=== PATIENT | male | born 1965 | race African-American/Black ===

== ENCOUNTER 2024-12-29 23:37 | Inpatient (IN) | payer OTHER, SELFPAY ==
[2024-12-29 20:30] VITALS: BP 102/74
[2024-12-29 21:22] LABS: Hematocrit 41.8 % (39.0-52.0); Hemoglobin 13.9 g/dL (13.0-18.0); Mean Corp Hgb Conc. 33.3 g/dL (33.0-37.0); Mean Corpuscular Volume 86.5 fL (80.0-94.0); Nucleated Red Blood Cells % 0 % (-); Platelet Count 269 10^3/uL (130-400); Red Cell Dist. Width 14.2 % (11.5-14.5)
[2024-12-29 21:29] LABS: Urine Character Slightly Cloudy (Clear)
--- NOTE | 2024-12-29 21:49 | ED.GENMED ---
History of Present Illness
<Tea Payne [employer] - Last Filed: 12/31/24 17:53>
General
Chief Complaint: Male Genito-Urinary Symptoms
Source: patient
Exam Limitations: none
Time Seen by Provider: 12/29/24 20:44
Nursing documentation reviewed up to this point in time: agreed with
History of Present Illness
History of Present Illness:
59-year-old male with history of HTN, HLD presenting with pain in the prostate area that extends to the scrotum and painful urination. In addition to these symptoms, he reports experiencing fevers and chills for the last three days, with
temperatures reaching as high as 102.9�F. The fever has ranged between 102.1�F and 102.9�F. The patient has taken Advil for the fever, which helped alleviate associated headaches but no reports on its effect on the pain. Does not feel that his
bladder is always emptying when he urinates.. He denies any difficulty in moving his bowels, with normal bowel movements reported. Denies N/V. Denies abdominal pain
Past History
<Tea Payne, [employer] - Last Filed: 12/31/24 17:53>
Past History
ED Past Medical History: HTN, Hypercholesterolemia and Other (Urine retention)
ED Past Surgical History: Appendectomy
Social History
Tobacco: Non-smoker
Alcohol: Occasional
Personal:
Living: with family
Employment: Employed
Review of Systems
<Tea Payne, [employer] - Last Filed: 12/31/24 17:53>
Review of Systems
Allergies reviewed?: Yes
All Other Systems: ROS reviewed and negative except as documented in HPI and ROS
Constitutional: Reports fever and chills
Respiratory: Denies trouble breathing
Cardiac: Denies chest pain
ABD/GI: Denies abdominal pain, nausea, vomiting or diarrhea
: Reports dysuria and difficulty voiding; Denies flank pain
Musculoskeletal: Reports no symptoms
Skin: Reports no symptoms
Neurological: Reports no symptoms
Phy Exam
<Tea Payne, [employer] - Last Filed: 12/31/24 17:53>
Physical Exam
Physical Exam:
GENERAL: No acute distress. A&Ox3.
CONSTITUTIONAL: Afebrile.
EYES: clear, conjunctivae normal
ENMT: moist mucus membranes, Pharynx nl
RESPIRATORY: Regular respirations, nonlabored, lungs clear.
CARDIOVASCULAR: Regular rate and rhythm, no murmurs, no rubs.
GI: Soft, nontender, normal BS
MUSCULOSKELETAL: Moves with ease. Well perfused.
SKIN: Warm, dry, pink
PSYCH: Normal mood and affect. Well kept, interactive and appropriate
NEUROLOGIC: Awake, alert and oriented. No focal neurological deficits
Course
<Tea Payne, [employer] - Last Filed: 12/31/24 17:53>
Orders/Labs/Results
Orders:
Orders
12/29/24 21:05
Bladder Scan- Treatment ONCE
12/29/24 21:06
CT Abd/Pel (IV only)-DH only Urgent
Comment:
Reason For Exam: pain to urinate, high fever, groin pain
12/29/24 21:16
C-Reactive Protein Urgent
Comment: ADD ON
Complete Blood Count/With Diff Urgent
Comprehensive Metabolic Panel Urgent
Erythrocyte Sed Rate Urgent
Comment: ADD ON
Urinalysis Reflex To Culture Urgent
Date Specimen was Collected: 12/29/24
Time Specimen was Collected: 21:13
Urine Microscopic Reflex Cult Urgent
Chlamydia/GC by PCR Urgent
ELISEO Source: U
Specimen Description:
Date Specimen was Collected: 12/29/24
Time Specimen was Collected: 21:13
Urine Culture Urgent
ELISEO Source: U
Specimen Description:
Date Specimen was Collected: 12/29/24
Time Specimen was Collected: 21:13
12/29/24 21:54
0.9% Sodium Chloride 1000 ml [Nss] 1,000 ml IV BOLUS
12/29/24 22:03
Piperacillin/Tazo 3.375 Gram [Zosyn] 3.375 gram in 50 ml IV NOW
12/29/24 22:12
Piperacillin/Tazo 4.5 Gram [Zosyn] 4.5 gram in 100 ml IV NOW
12/29/24 22:16
Lactic Acid Q4H
Comment: CANCEL 2nd LACTIC ACID IF 1st LACTIC ACID IS LESS THAN 2
Blood Culture Q30M
ELISEO Source: Blood/Venous
Specimen Description:
Blood Culture Q30M
ELISEO Source: Blood/Venous
Specimen Description:
12/29/24 22:41
Add On- LAB Urgent
Tests Added?: CRP, Sed rate
12/29/24 22:53
US Scrotum Urgent
Comment:
Reason For Exam: pain, swelling scrotum
12/29/24 23:00
Add On- LAB Urgent
Tests Added?: Urine GC and Chlamydia
12/29/24 23:20
Admit/Transfer Patient As Directed
Co-Sign Provider:
Level of Care: Inpatient admission
Assign to:: Medical/Surgical
Physician / Group: shanika allred
Diagnosis: sepsis 2/2 uti, cystitis vs prostatitis, acute orchitis Right, reji
Reason for Hospitalization: sepsis 2/2 uti, cystitis vs prostatitis, acute orchitis Right, reji
Expected length of stay greater than two midnights?: Yes
ELOS- Estimated Length of Stay in days: 4
I certify the patient meets the requirements for IP care: Yes
Code Status As Directed
Resuscitation Status: Full Code
12/29/24 23:23
PRN Pain Medication Management As Directed
May give lesser potent ordered pain med per pt: Yes
preference::
Protocol:: Medication orders for pain may be administered in a
manner that supports deferring to patient preference
when the pt is:
- Requesting an ordered lesser potent pain medication.
Least to most potent pain medications are defined
as: acetaminophen < NSAID < tramadol < opioids
(morphine, oxycodone, hydromorphone).
- Requesting a lesser dose of the same medication IF
ORDERED.
- Requesting a less intrusive route of administration
if both routes are prescribed by the provider (PO <
IV).
12/29/24 23:34
UROLOGY CONSULT Routine
Consulting Provider: Dannie Quinones
Was physician already notified: Yes
Comment: sepsis uti, prostatitis, right sided orchitis
12/30/24 01:16
0.9% Sodium Chloride 1000 ml [Nss] 1,000 ml IV 100 mls/hr
Acetaminophen [Tylenol] 650 mg PO Q4HPRN PRN
Bisacodyl [Dulcolax] 10 mg RECTAL [id number] PRN
Dextrose 50%-Water [Dextrose 50% Syringe] 12.5 grams IV [id number] PRN
Docusate W/Senna [Senokot-S] 1 tablet PO BIDPRN PRN
Glucagon [GlucaGen] 1 mg IM PRN PRN
Oxycodone [Roxicodone] 5 mg PO Q4HPRN PRN
Polyethylene Glycol Powder [Miralax] 17 grams PO DAILYPRN PRN
12/30/24 01:16
Activity As Directed
Activity Level: As Tolerated
Bedside Glucose Monitoring As Directed
Frequency: AC&HS
Additional Instructions:: Change to q6h if pt on TPN, tube feeding or not eating
Vital Signs As Directed
Frequency: Per unit guidelines
DX Deep Vein Thrombosis Video Routine
12/30/24 Breakfast
Regular
At Your Request: Full Participation
LevoFLOXacin 500 MG/100 ML [Levaquin] 500 mg in 100 ml IV Q24H
12/30/24 06:55
Complete Blood Count/With Diff IN AM
Comprehensive Metabolic Panel IN AM
Glycohemoglobin (HgbA1c) IN AM
12/30/24 07:30
Insulin Aspart Corrective Low [Novolog Flexpen-Low Resistance] See Protocol SC AC
12/30/24 08:00
Atorvastatin [Lipitor] 40 mg PO DAILY
Heparin 5,000 units SC Q12
12/30/24 22:00
Tamsulosin [Flomax] 0.8 mg PO HS
12/31/24 06:56
Complete Blood Count/With Diff IN AM
Comprehensive Metabolic Panel IN AM
Abnormal Lab Results
12/29/24
21:16
WBC 18.1 H 10^3/uL
(4.8-10.8)
Abs Immat Gran (auto) 0.2 H 10^3/uL
(0-0.05)
Absolute Neuts (auto) 15.3 H 10^3/uL
(1.4-6.5)
Absolute Lymphs (auto) 0.8 L 10^3/uL
(1.2-3.4)
Absolute Monos (auto) 1.7 H 10^3/uL
(0.1-0.6)
Immature Gran % 0.8 H %
(0-0.5)
Neutrophils % 85.0 H %
(42.2-75.2)
Lymphocytes % 4.6 L %
(20.5-51.1)
ESR 49 H mm/hour
(0-20)
Creatinine 1.9 H mg/dL
(0.7-1.3)
Glucose 121 H mg/dl
(70-99)
C-Reactive Protein 216.70 H mg/L
(0.0-10.00)
Urine Ketones 1+ A
(Negative)
Ur Occult Blood Reflex 2+ A
(Negative)
Urine Bilirubin 1+ A
(Negative)
Leukocyte Esterase Rfl 3+ A
(Negative)
Urine RBC 3-6 A /HPF
(0-2)
Urine WBC (Reflex) 21-25 A /HPF
(0-5)
Urine Bacteria (Reflex) Moderate A
(Negative)
Urine Albumin (Reflex) 3+ A
(Neg - Trace)
12/29/24 21:16
12/29/24 21:16
Vital Signs
Initial and Last Documented VS:
Initial Vital Signs
Temp Pulse Resp BP Pulse Ox
98.3 F 101 15 102/74 97
12/29/24 20:30 12/29/24 20:30 12/29/24 20:30 12/29/24 20:30 12/29/24 20:30
Last Documented Vital Signs
Temp Pulse Resp BP Pulse Ox
98.3 F 87 16 129/82 98
12/31/24 07:10 12/31/24 07:10 12/31/24 07:10 12/31/24 07:10 12/31/24 07:10
Pecan Gatherer consulted with Physician
Pecan Gatherer consulted with physician?: Yes
Name of Physician Consulted: Barbra
<Tom Fenton, DO - Last Filed: 12/29/24 22:55>
Orders/Labs/Results
Orders:
Orders
12/29/24 21:05
Bladder Scan- Treatment ONCE
12/29/24 21:06
CT Abd/Pel (IV only)-DH only Urgent
Comment:
Reason For Exam: pain to urinate, high fever, groin pain
12/29/24 21:16
C-Reactive Protein Urgent
Comment: ADD ON
Complete Blood Count/With Diff Urgent
Comprehensive Metabolic Panel Urgent
Erythrocyte Sed Rate Urgent
Comment: ADD ON
Urinalysis Reflex To Culture Urgent
Date Specimen was Collected: 12/29/24
Time Specimen was Collected: 21:13
Urine Microscopic Reflex Cult Urgent
Chlamydia/GC by PCR Urgent
ELISEO Source: U
Specimen Description:
Date Specimen was Collected: 12/29/24
Time Specimen was Collected: 21:13
Urine Culture Urgent
ELISEO Source: U
Specimen Description:
Date Specimen was Collected: 12/29/24
Time Specimen was Collected: 21:13
12/29/24 21:54
0.9% Sodium Chloride 1000 ml [Nss] 1,000 ml IV BOLUS
12/29/24 22:03
Piperacillin/Tazo 3.375 Gram [Zosyn] 3.375 gram in 50 ml IV NOW
12/29/24 22:12
Piperacillin/Tazo 4.5 Gram [Zosyn] 4.5 gram in 100 ml IV NOW
12/29/24 22:16
Lactic Acid Q4H
Comment: CANCEL 2nd LACTIC ACID IF 1st LACTIC ACID IS LESS THAN 2
Blood Culture Q30M
ELISEO Source: Blood/Venous
Specimen Description:
Blood Culture Q30M
ELISEO Source: Blood/Venous
Specimen Description:
12/29/24 22:41
Add On- LAB Urgent
Tests Added?: CRP, Sed rate
12/29/24 22:53
US Scrotum Urgent
Comment:
Reason For Exam: pain, swelling scrotum
12/29/24 23:00
Add On- LAB Urgent
Tests Added?: Urine GC and Chlamydia
12/29/24 23:20
Admit/Transfer Patient As Directed
Co-Sign Provider:
Level of Care: Inpatient admission
Assign to:: Medical/Surgical
Physician / Group: shanika allred
Diagnosis: sepsis 2/2 uti, cystitis vs prostatitis, acute orchitis Right, reji
Reason for Hospitalization: sepsis 2/2 uti, cystitis vs prostatitis, acute orchitis Right, reji
Expected length of stay greater than two midnights?: Yes
ELOS- Estimated Length of Stay in days: 4
I certify the patient meets the requirements for IP care: Yes
Code Status As Directed
Resuscitation Status: Full Code
12/29/24 23:23
PRN Pain Medication Management As Directed
May give lesser potent ordered pain med per pt: Yes
preference::
Protocol:: Medication orders for pain may be administered in a
manner that supports deferring to patient preference
when the pt is:
- Requesting an ordered lesser potent pain medication.
Least to most potent pain medications are defined
as: acetaminophen < NSAID < tramadol < opioids
(morphine, oxycodone, hydromorphone).
- Requesting a lesser dose of the same medication IF
ORDERED.
- Requesting a less intrusive route of administration
if both routes are prescribed by the provider (PO <
IV).
12/29/24 23:34
UROLOGY CONSULT Routine
Consulting Provider: Dannie Quinones
Was physician already notified: Yes
Comment: sepsis uti, prostatitis, right sided orchitis
12/30/24 01:16
0.9% Sodium Chloride 1000 ml [Nss] 1,000 ml IV 100 mls/hr
Acetaminophen [Tylenol] 650 mg PO Q4HPRN PRN
Bisacodyl [Dulcolax] 10 mg RECTAL [id number] PRN
Dextrose 50%-Water [Dextrose 50% Syringe] 12.5 grams IV [id number] PRN
Docusate W/Senna [Senokot-S] 1 tablet PO BIDPRN PRN
Glucagon [GlucaGen] 1 mg IM PRN PRN
Oxycodone [Roxicodone] 5 mg PO Q4HPRN PRN
Polyethylene Glycol Powder [Miralax] 17 grams PO DAILYPRN PRN
12/30/24 01:16
Activity As Directed
Activity Level: As Tolerated
Bedside Glucose Monitoring As Directed
Frequency: AC&HS
Additional Instructions:: Change to q6h if pt on TPN, tube feeding or not eating
Vital Signs As Directed
Frequency: Per unit guidelines
DX Deep Vein Thrombosis Video Routine
12/30/24 Breakfast
Regular
At Your Request: Full Participation
LevoFLOXacin 500 MG/100 ML [Levaquin] 500 mg in 100 ml IV Q24H
12/30/24 06:55
Complete Blood Count/With Diff IN AM
Comprehensive Metabolic Panel IN AM
Glycohemoglobin (HgbA1c) IN AM
12/30/24 07:30
Insulin Aspart Corrective Low [Novolog Flexpen-Low Resistance] See Protocol SC AC
12/30/24 08:00
Atorvastatin [Lipitor] 40 mg PO DAILY
Heparin 5,000 units SC Q12
12/30/24 22:00
Tamsulosin [Flomax] 0.8 mg PO HS
12/31/24 06:56
Complete Blood Count/With Diff IN AM
Comprehensive Metabolic Panel IN AM
Abnormal Lab Results
12/29/24
21:16
WBC 18.1 H 10^3/uL
(4.8-10.8)
Abs Immat Gran (auto) 0.2 H 10^3/uL
(0-0.05)
Absolute Neuts (auto) 15.3 H 10^3/uL
(1.4-6.5)
Absolute Lymphs (auto) 0.8 L 10^3/uL
(1.2-3.4)
Absolute Monos (auto) 1.7 H 10^3/uL
(0.1-0.6)
Immature Gran % 0.8 H %
(0-0.5)
Neutrophils % 85.0 H %
(42.2-75.2)
Lymphocytes % 4.6 L %
(20.5-51.1)
ESR 49 H mm/hour
(0-20)
Creatinine 1.9 H mg/dL
(0.7-1.3)
Glucose 121 H mg/dl
(70-99)
C-Reactive Protein 216.70 H mg/L
(0.0-10.00)
Urine Ketones 1+ A
(Negative)
Ur Occult Blood Reflex 2+ A
(Negative)
Urine Bilirubin 1+ A
(Negative)
Leukocyte Esterase Rfl 3+ A
(Negative)
Urine RBC 3-6 A /HPF
(0-2)
Urine WBC (Reflex) 21-25 A /HPF
(0-5)
Urine Bacteria (Reflex) Moderate A
(Negative)
Urine Albumin (Reflex) 3+ A
(Neg - Trace)
12/29/24 21:16
12/29/24 21:16
Vital Signs
Initial and Last Documented VS:
Initial Vital Signs
Temp Pulse Resp BP Pulse Ox
98.3 F 101 15 102/74 97
12/29/24 20:30 12/29/24 20:30 12/29/24 20:30 12/29/24 20:30 12/29/24 20:30
Last Documented Vital Signs
Temp Pulse Resp BP Pulse Ox
98.3 F 87 16 129/82 98
12/31/24 07:10 12/31/24 07:10 12/31/24 07:10 12/31/24 07:10 12/31/24 07:10
<Tea Payne, [employer] - Last Filed: 12/31/24 17:53>
MDM/Problems Addressed
Differential Diagnosis Includes:
Bacterial Prostatitis, abscess, UTI, urine retention, urethritis, epididymitis
MDM/Problems Addressed:
59-year-old male with history of HTN, HLD presenting with pain in the prostate area that extends to the scrotum and painful urination. In addition to these symptoms, he reports experiencing fevers and chills for the last three days, with
temperatures reaching as high as 102.9�F. The fever has ranged between 102.1�F and 102.9�F. The patient has taken Advil for the fever, which helped alleviate associated headaches but no reports on its effect on the pain. Does not feel that his
bladder is always emptying when he urinates.. He denies any difficulty in moving his bowels, with normal bowel movements reported. Denies N/V. Denies abdominal pain
Last Advil was at 2 PM. Patient afebrile now
Postvoid bladder scan reveals no urine retention
9:50 PM:
CBC: WBC 18.1
CMP: Creatinine 1.9 GFR 39.89 with a shift
UA: 2+ occult blood, +1 bilirubin +1 ketones, +3 leukocyte esterase, +3 urine albumin, WBC 21-25, RBCs 3-6, moderate bacteria
10:[address] scan
10:45 PM:
CT abdomen pelvis radiology report read: 1. Questionable cystitis. No other significant acute abnormality identified in the abdomen or pelvis, as described above.
2. Simple hepatic cysts, largest measuring up to 15.[address] Fenton into evaluate patient
Patient with swelling and significant tenderness of his scrotum, ultrasound ordered
Plan: Admit, IV antibiotics, blood and urine cultures pending, scrotal ultrasound pending
Hospitalist notified of admission
<Tea Payne [employer] - Last Filed: 12/31/24 17:53>
*Pulse Oximetry
SaO2: 97
Oxygen Mode of Delivery: Room air
Patient hypoxic: no
*Critical Care Note
Total Time (30-74mins, 75-104mins- exclusive of procedures): Not Applicable
ED Attending Note
<Tea Payne [employer] - Last Filed: 12/31/24 17:53>
-
Portions of this chart may have been created with voice recognition software.� Occasional wrong word or��sound alike� substitutions may have occurred due to the inherent limitations of voice recognition software.
<Tom Fenton DO - Last Filed: 12/29/24 22:55>
ED Attending Note
Patient seen and examined by attending physician: Yes
I performed the substantive portion of visit, reviewed & personally made and approve the management plan that is documented in note by myself or ROSIO.: Yes
ED Attending Note:
59-year-old male who presents with some difficulty urinating fevers and pain in the groin and lower abdomen. Patient states that pain has been ongoing for couple days. He left his son's wedding to come for evaluation. Exam: Prostate nontender,
right hemiscrotum is significantly swollen, tender and indurated. Penis appears normal. Left hemiscrotum normal. CT scan shows questionable cystitis. Assessment and plan: Suspect orchitis but will check ultrasound to evaluate for abscess versus
orchitis. Treat with IV antibiotics and admit given his leukocytosis, renal insufficiency and left shift
Discharge Plan
Departure
Patient Disposition: Admit
Date of Disposition: 12/29/24
Time of Disposition: 22:49
Admit to: Med/Surg
Presentation/result/management discussed w/ accepting MD/DO: Hospitalist
Condition: Fair
Discharge Problem:
Acute cystitis, Acute kidney insufficiency, Orchitis
Interventions
Interventions:
*Risk Screen - Suicide Last Done: 12/29/24 20:30
*General Assessment Last Done: 12/30/24 01:13
*Neglect/Abuse Screening Last Done: 12/29/24 20:30
*ED- Fall Risk Assessment Last Done: 12/30/24 01:19
*ED COVID-19 Vaccine History Last Done: 12/29/24 20:30
*Nursing Disposition Last Done: 12/30/24 01:19
ED-Male Genitourinary Assessment Last Done: 12/29/24 20:45
Discharge Date and Time
Discharge Date/Time: 12/30/24 01:20
[2024-12-29 21:51] LABS: ALT (SGPT) 32 U/L (0-50); AST (SGOT) 23 U/L (17-59); Albumin 3.8 g/dl (3.5-5.0); Alkaline Phosphatase 63 U/L (38-126); Blood Urea Nitrogen 19 mg/dl (9-20); Calcium 9.4 mg/dl (8.4-10.2); Carbon Dioxide 25 mmol/L (22-30); Chloride 102 mmol/L (98-107); Glucose 121 mg/dl (70-99); Potassium 4.3 mmol/L (3.5-5.1); Sodium 135 mmol/L (135-145); Total Protein 7.0 g/dl (6.3-8.2); eGFR 39.89
[2024-12-29 21:54] LABS: Urine Squamous Cell 16-20 /LPF (Few)
[2024-12-29 21:55] LABS: Urine White Cell 21-25 /HPF (0-5)
[2024-12-29] MEDS: NSS 1000 IV (22:18)
[2024-12-29] MEDS: ZOSYN 100 IV (22:20)
[2024-12-29 22:23] VITALS: BP 132/84
--- NOTE | 2024-12-29 22:55 | HPS.HSE ---
Addendum entered and electronically signed by ZAHRA Bernstein 12/29/24 23:36:
candesartan held due to joselin
Udology conuslted Dr reddy
Addendum entered and electronically signed by Danis Lo MD 12/29/24 23:34:
Acute Epididymitis also a consideration given findings.
Addendum entered and electronically signed by Danis Lo MD 12/29/24 23:32:
This is an addendum to H&P written by Karyn Sosa on 12/29/2024. �Patient seen and examined independently with MUSIC ENGINEER.
59-year-old male past medical history of BPH, hypertension, hyperlipidemia, prediabetes, presenting with suprapubic pain extending into the right scrotum with painful urination. �Fevers and chills as high as 102.9. �No nausea or vomiting. �No
urethral discharge.
Vital signs show tachycardia up to 101.
Labs show leukocytosis of 18. �Creatinine 1.9. �Urinalysis shows 21-25 WBC, plus leukocyte esterase.
CT abdomen pelvis shows possible cystitis. �Prostatomegaly bulging into the bladder base with questionable wall thickening diffusely.
Patient with sepsis secondary to urinary tract infection/likely acute prostatitis. �Patient also with swelling of right testicle possible orchitis, testicular ultrasound pending. �Also JOSELIN likely prerenal. �Check urine culture, blood cultures, IV
fluids, Levaquin. �Check urine gonorrhea/chlamydia. �Urology consulted.
Original Note:
Family Physician
-
Family Physician: PHYSICIAN PRIVATE
Chief Complaint
-
Right scrotal pain and swelling, dysuria, fever
History of Present Illness
59-year-old male complaining of pain in the prostate area extending into his right scrotum with dysuria along with fever and chills over the last 2 days with temperatures as high as 102.9F. He reports he is not taking Advil for fever and headache.
Patient reports ongoing issues with enlarged prostate history of prostate biopsy that was negative. He follows with urology in [place] which he saw 2 weeks ago for routine visit. He does report dysuria with chronic hesitancy and split stream. He
denies cough, shortness breath, chest pain, palpitations, abdominal pain, nausea, vomiting, diarrhea, penile discharge. He has past medical history of hypertension, hyperlipidemia, urine retention/BPH, prediabetes.
Medical History
Past Medical History
Past Medical History: Reports Other
Additional Past Medical History:
hypertension
hyperlipidemia
urine retention/BPH
prediabetes.
Past Surgical History: Reports Other
Additional Past Surgical History:
Appendectomy
Social History
Tobacco: Non-smoker
Alcohol: None
Drug: None
Personal:
Living: With Family ()
Family History
Family History: Not pertinent
Allergies / Home Medications
Allergies reflects when Allergies were last updated in [facility].
Home Medications with original date entered in [facility]
Allergy/Medication List:
Allergies
Allergy/AdvReac Type Severity Reaction Status Date / Time
No Known Allergies Allergy Unverified 12/29/24 20:32
Home Medications
atorvastatin 40 mg tablet 40 mg PO DAILY 12/29/24
candesartan 16 mg tablet 16 mg PO DAILY 12/29/24
metformin 750 mg tablet,extended release 24 hr 750 mg PO DAILY 12/29/24
tamsulosin 0.4 mg capsule 0.8 mg PO HS 12/29/24
Review of Systems
-
History Source: Patient and Family ( and male friend at bedside)
A 12 point ROS was completed and negative except as noted: Yes
Constitutional: Reports Fever and Chills
EENT: Denies Sore Throat or Runny Nose
Respiratory: Denies Cough or Trouble Breathing
Cardiac: Denies Chest Pain, Diaphoresis or Palpitations
Abdomen/GI: Denies Abdominal Pain, Nausea, Vomiting, Diarrhea or Constipated
: Reports Dysuria, Difficulty Voiding (Chronic split stream due to enlarged prostate) and Urgency; Denies Frequency
Musculoskeletal: Denies Joint Pain or Edema
Skin: Denies Itching or Rash
Neurological: Reports Headache; Denies Dizzy or Weakness
Endocrine: Reports No Symptoms
Hematologic/Lymphatic: Reports No Symptoms
Psych: Reports Calm
Physical Exam
Vital Signs
Vital Signs
Temp Pulse Resp BP Pulse Ox
98.3 F 92 18 132/84 99
12/29/24 20:30 12/29/24 22:23 12/29/24 22:23 12/29/24 22:23 12/29/24 22:23
Physical Exam
General: Pain, Fever and Chills
HEENT: NormoCephalic, Anicteric, Moist mucous membranes, PERRLA, [place] Conjunctivae and No Ptosis
Respiratory: Clear; No Wheezes, Rales or Rhonchi
Cardiac: S1/S2 and Regular Rhythm; No Murmur, Rub, Gallop or Peripheral Edema
Breast: Deferred by me
GI: Soft, Non Tender and Normal Bowel Sounds
Genito-urinary: Other (Right scrotal swelling hard to palpation, no visible penile discharge)
Musculoskeletal: No Clubbing, No Cyanosis and No Edema
Skin: Warm and Dry; No Rash
Neuro: AO x 3, No Motor Deficits, Nonfocal/grossly intact, Cranial Nerves Intact and No Sensory Deficits; No Slurred Speech, Facial Droop or Tremors
Psych: Calm
Laboratory Results
-
12/29/24 21:16
12/29/24 21:16
Laboratory Results
Lactic Acid 1.1 mmol/L (0.7-2.0) 12/29/24 22:16
Total Bilirubin 0.8 mg/dl (0.2-1.3) 12/29/24 21:16
AST 23 U/L (17-59) 12/29/24 21:16
ALT 32 U/L (0-50) 12/29/24 21:16
Alkaline Phosphatase 63 U/L (38-126) 12/29/24 21:16
Data Reviewed
-
CT Scan: Report Reviewed by me
Lab Data: Labs Reviewed by me
Impression/Plan
-
Impression/plan:
Admit to MedSurg
#Sepsis 2/2 UTI
Possible acute cystitis versus prostatitis given prostatomegaly bulging into bladder
WBC 18 with left shift, 98.3, HR 92
UA moderate bacteria +2 leukocyte WBC 21�25
-IV Levaquin
-Iv NSS 1 liter in Er , cont Iv NSS 100 cc/hr
-Tylenol as needed fever
- collow cbc, cmp. urine culture
CT abdomen pelvis
Prostatomegaly bulging into the bladder base. Scattered prostatic calcifications.
Questional cystitis bladder otherwise decompressed and not well evaluated, with questionable wall thickening diffusely
#Orchitis right sided
- Check testicular ultrasound
- IV Levaquin
- Obtain GC culture
- Consult urology
#JOSELIN
Creat 1.9
IV NSS
-Iv NSS 1 liter in Er , cont Iv NSS 100 cc/hr
#History BPH
Patient reports follows with urologist in [place] saw 2 weeks ago
-Continue Flomax 0.8 mg at bedtime
# Prediabetes versus DM 2
Blood sugar 121
-Accu-Cheks with SSI, check HgbA1c
-Hold metformin 750 mg XR due to JOSELIN
#HTN
BP 132/84
-Continue candesartan
#HLD
Continue atorvastatin 40 mg daily
DVT prophylaxis
Subcu heparin
Full code
[2024-12-30 00:13] LABS: C-Reactive Protein 216.70 mg/L (0.0-10.00)
--- NOTE | 2024-12-30 01:15 | PTCARENOTE ---
Pt received from ED to [facility]-2. Pt oriented to room and call march.
[2024-12-30 01:19] VITALS: BP 140/92
[2024-12-30 01:26] VITALS: BP 125/75; BMI 30.6
[2024-12-30] MEDS: NSS 1000 IV ×2 (01:37→15:38)
[2024-12-30 03:20] VITALS: BP 135/73
[2024-12-30] MEDS: LEVAQUIN 100 IV (05:11)
[2024-12-30 07:25] VITALS: BP 137/74
[2024-12-30] MEDS: LIPITOR 40 MG PO (07:45)
[2024-12-30 07:47] LABS: Hematocrit 39.6 % (39.0-52.0); Hemoglobin 13.4 g/dL (13.0-18.0); Mean Corp Hgb Conc. 33.8 g/dL (33.0-37.0); Mean Corpuscular Volume 87.2 fL (80.0-94.0); Nucleated Red Blood Cells % 0 % (-); Platelet Count 295 10^3/uL (130-400); Red Cell Dist. Width 14.4 % (11.5-14.5)
[2024-12-30 08:13] LABS: ALT (SGPT) 31 U/L (0-50); AST (SGOT) 23 U/L (17-59); Albumin 3.6 g/dl (3.5-5.0); Alkaline Phosphatase 73 U/L (38-126); Blood Urea Nitrogen 18 mg/dl (9-20); Calcium 9.4 mg/dl (8.4-10.2); Carbon Dioxide 25 mmol/L (22-30); Chloride 104 mmol/L (98-107); Estimated Creatinine Clearance 75 ml/min; Glucose 83 mg/dl (70-99); Potassium 4.2 mmol/L (3.5-5.1); Sodium 139 mmol/L (135-145); Total Protein 6.9 g/dl (6.3-8.2); eGFR > 60.00
[2024-12-30 08:16] LABS: Glucose - Point of Care 120 mg/dl (70-99)
[2024-12-30 09:13] LABS: Glycohemoglobin (HgbA1c) 5.5 % (4.0-5.6)
--- NOTE | 2024-12-30 09:46 | W.PN.HOSP.TC ---
Today's Communication/Plan
-
see PN
Assessment / Plan
Assessment / Plan
59yo M with PMHx of HTN, HLD, DM, BPH with LUTS came with 4 days of progressive malaise initially with burning with urination later developed R testicular swelling and fevers uup to 102, found epidymo-orchitis, cannot exclde prostatitis
#Sepsis on admission (leukocytosis, fever) 2/2 Epididymo-orchitis
#BPH
#Renal cysts
Ucx pending
Chlam/GC PCR pednign
LEvofloxacin/ Doxy until results, EKG for QTc
Urology consult
Testicular torsion excluded with US
ID consult
pain mgmt
#JOSELIN
most liekly 2/2 sepsis
resolved on IVF
No obstrcutive nephropathy on CT
#Simple hepatic cysts
no follow up advised
#Diverticulosis
High fiber diet
#DM type 2 with unspecified complications
Accuchecks Insulin SS DM diet
#Essential HTN
cont home meds
DVt ppx lovenox
FUll code
I have spent at least 58min reviewing chart, test results, communication with consultants, family bedside and providing direct patient care
Anticipated Discharge: 24 - 48 hours
Subjective/Interval History
-
Date of Service: December 30, 2024
Objective Data
-
Labs:
Laboratory Results
12/29/24 12/30/24
21:16 06:55
WBC 20.9 H
Hgb 13.4
Hct 39.6
Plt Count 295
Sodium 135 139
Potassium 4.3 4.2
Chloride 102 104
Carbon Dioxide 25 25
BUN 19 18
Creatinine 1.9 H 1.3
Glucose 121 H 83
Calcium 9.4 9.4
Total Bilirubin 0.8 0.7
AST 23 23
ALT 32 31
Alkaline Phosphatase 63 73
Vital Signs:
Vital Signs
Temp Pulse Resp BP Pulse Ox
98.1 F 85 16 137/74 100
12/30/24 07:25 12/30/24 07:25 12/30/24 07:25 12/30/24 07:25 12/30/24 07:25
I&O
12/29/24 12/30/24 12/31/24
06:59 06:59 06:59
Intake Total 550 / 550
Balance 550 / 550
Review of Systems
-
History Source: Patient
All other systems: Reviewed and negative
Genitourinary: Reports Other (testicular pain)
Physical Exam
-
General: No Apparent Distress
Neuro: Awake, Alert, Oriented and AO x 3
Psych: Calm
[2024-12-30] MEDS: LEVAQUIN 50 IV (09:51)
--- NOTE | 2024-12-30 10:05 | CM ---
food operations manager reviewed patient's chart and met with patient and spouse at bedside, patient is independent with adl's and ambulation, no dme, patient drives, plan is to home when stable, no needs.
PCP: Diane Marcum
Pharmacy: [facility].
--- NOTE | 2024-12-30 10:29 | CONS.URO ---
Consultation
-
Date/Time Consultation Requested: 12/30
Date/Time Consultation Performed: 12/30
Requesting Provider: Hospitalist
Performing Provider: Stacie
Reason for Consultation: prostatitis, cUTI
Medical History
History of Present Illness
59M visiting in town for his son's wedding (01/08) presents to [facility] ED on 01/08 w/ pelvic/perineal pain, dysuria, fevers/chills x2 days.
Fevers noted to be 102.9F at home.
Notes baseline LUTS including urinary hesitancy, weak stream, split stream, post-void dribbling.
Prior urologic history as follows:
- urologist @[facility]
- h/o BPH on tamsulosin 0.8 mg qhs
- had recent MRI prostate (normal in 2024)
- s/p TRUS prostate biopsy (negative for prostate cancer)
59-year-old male complaining of pain in the prostate area extending into his right scrotum with dysuria along with fever and chills over the last 2 days with temperatures as high as 102.9F. He reports he is not taking Advil for fever and headache.
Patient reports ongoing issues with enlarged prostate history of prostate biopsy that was negative. He follows with urology in [place] which he saw 2 weeks ago for routine visit. He does report dysuria with chronic hesitancy and split stream. He
denies cough, shortness breath, chest pain, palpitations, abdominal pain, nausea, vomiting, diarrhea, penile discharge. He has past medical history of hypertension, hyperlipidemia, urine retention/BPH, prediabetes.
Past Medical History
Past Medical History: HTN and Other (BPH, HLD)
Past Surgical History: Appendectomy
Social History
Tobacco: Non-smoker
Alcohol: None
Drug: None
Personal:
Living: With Family
Employment: Employed
Family History
Family History: Reviewed & Not Pertinent
Allergies/Home Medications
Allergies
Allergy/AdvReac Type Severity Reaction Status Date / Time
No Known Allergies Allergy Unverified 12/29/24 20:32
Home Medications
�Medication �Instructions �Recorded �Confirmed �Type
atorvastatin 40 mg tablet 40 mg PO DAILY High Cholesterol 12/29/24 12/30/24 History
candesartan 16 mg tablet 16 mg PO DAILY Blood Pressure 12/29/24 12/30/24 History
metformin 750 mg tablet,extended 750 mg PO DAILY Diabetes 12/29/24 12/30/24 History
release 24 hr
tamsulosin 0.4 mg capsule 0.8 mg PO HS Urinary Issue 12/29/24 12/30/24 History
Review of Systems
-
History Source: Patient and Family
A 12 point Review of Systems was completed except as noted: Yes
Abdomen/GI: Reports Abdominal Pain
: Reports Dysuria, Frequency and Difficulty Voiding
Physical Exam
Vital Signs
Vital Signs
Temp Pulse Resp BP Pulse Ox
98.1 F 85 16 137/74 100
12/30/24 07:25 12/30/24 07:25 12/30/24 07:25 12/30/24 07:25 12/30/24 07:25
Lab / Testing Results
Laboratory Results
12/30/24 06:55
12/30/24 06:55
Physical Exam
General: Well Developed, Well Nourished and No Apparent Distress
HEENT: Normocephalic and Anicteric
Cardiac: S1/S2
Breast: N/A
GI: Soft, Non Tender and Non Distended
Rectal: Deferred by Provider
Genito-urinary: Clear Urine
Musculoskeletal: No Edema
Skin: Warm and Dry
Neuro: AO x 3 and Nonfocal/Grossly Intact
Hematologic/Lymphatic: No Lymphadenopathy
Psych: Calm and Intact Judgement
Assessment / Plan
-
Acute bacterial prostatitis
Leukocytosis
JOSELIN - resolved
Cr downtrending from 1.9 to 1.3.
Subjectively, patient feels much better today.
- Continue IV Levaquin pending UCx/BCx S/S
- CT imaging reviewed => normal pathology, large volume BPH, no prostatic abscess noted
- Continue tamsulosin 0.8 mg qhs
- Start finasteride 5 mg daily (ordered)
- Patient will F/U w/ his established urologist in [place] after discharge
D/w spouse and patient.
Data Reviewed
-
Total Time Spent with Patient (in minutes): 50
CT Scan: Image personally visualized and interpreted, Report Reviewed by Me, Discussed with Physician, Discussed with Patient and Discussed with Family
MRI: Discussed with Patient and Discussed with Family
Lab Data: Labs Reviewed, Discussed with Physician, Discussed with Patient and Discussed with Family
Old Records: Reviewed
[2024-12-30] MEDS: PROSCAR 5 MG PO (11:42)
[2024-12-30] MEDS: VIBRAMYCIN 260 MG IV (11:42)
[2024-12-30 11:46] LABS: Glucose - Point of Care 109 mg/dl (70-99)
[2024-12-30] MEDS: NSS IV (11:54)
[2024-12-30 15:23] LABS: Glucose - Point of Care 96 mg/dl (70-99)
[2024-12-30 16:19] VITALS: BP 144/80
--- NOTE | 2024-12-30 18:28 | CON.ID ---
Consultation
-
Date/Time Consultation Requested: 12/30/2024 0947
Date/Time Consultation Performed: 12/30/2024 1820
Requesting Provider: Dr. Guadalupe
Performing Provider: Dr. Snell
Reason for Consultation: Epididymoorchitis
Chief Complaint / Past History
History of Present Illness
Jhon Briones is a 59-year-old man with a significant past medical history of BPH and HTN being evaluated at the request of Dr. Guadalupe in regards to epididymal orchitis. History is obtained from chart review, along with patient interview.
The patient presented to [facility] on 12/29/2024 following the development of fevers and chills.
Normal white count the patient reports that he was feeling well approximately 5 days ago, but the next day he reports he 'felt terrible', with fever and generalized weakness and overall feeling 'slow'. The next day he developed some headaches, and
noted some difficulty urinating. He had to travel to [facility] that night to diamond picker a family member and once down there and noted some slight right testicular discomfort. Once back in the [place] area he continued to feel poorly, with
ongoing difficulty urinating. He got through his son's wedding yesterday afternoon and briefly was at the concierge receptionist, but then came to the hospital because of progressive general malaise. Workup in the ER revealed a leukocytosis, and scrotal
ultrasound could not exclude bilateral epididymal orchitis. Infectious Diseases has been asked to comment upon further antimicrobial management.
At this time, he notes he is feeling somewhat improved. He notes less difficulty urinating. Fevers have also improved. No history of hematuria.
Past History
Additional Past Medical History:
HTN
HLD
BPH
Prediabetes
Alopecia
Additional Past Surgical History:
Appendectomy
Allergy History:
No Known Allergies Allergy (Unverified 12/29/24 20:32)
Medications Reviewed: Yes
Current Antibiotics:
Doxycycline 100 mg IV q.12 hours
Levofloxacin 750 mg IV q.24 hours
Social History
Tobacco: Non-Smoker
Alcohol: Occasional
Drug: None
Personal:
Living: With Family
Employment: Employed
Review of Systems
Vital Signs
Temp Pulse Resp BP Pulse Ox
98.8 F 97 18 144/80 98
12/30/24 16:19 12/30/24 16:19 12/30/24 16:19 12/30/24 16:19 12/30/24 16:19
Physical Exam
Physical Exam
Constitutional: No Acute Distress, Comfortable and Non-toxic
Eyes: No Conjunctival Hemorrhage and Sclera Anicteric
Oral: No Thrush and No Ulcers
Cardiovascular: S1/S2; Negative S3/S4
Pulmonary: Non Labored
Gastrointestinal: Soft, Non Tender and Non Distended
Genito-Urinary: Other (Mild right testicular swelling.)
Extremities: Negative Edema, Cyanosis or Erythema
Skin: Warm and Dry; Negative Rash
Neurological: Awake and Alert
Psychological: Calm
Lab / Diagnostic Study Results
12/30/24 06:55
12/30/24 06:55
Abs Immat Gran (auto) 0.1 10^3/uL (0-0.05) H 12/30/24 06:55
Absolute Neuts (auto) 17.9 10^3/uL (1.4-6.5) H 12/30/24 06:55
Absolute Lymphs (auto) 1.1 10^3/uL (1.2-3.4) L 12/30/24 06:55
Absolute Monos (auto) 1.7 10^3/uL (0.1-0.6) H 12/30/24 06:55
Absolute Basos (auto) 0.1 10^3/uL (0-0.2) 12/30/24 06:55
Immature Gran % 0.5 % (0-0.5) 12/30/24 06:55
Neutrophils % 85.6 % (42.2-75.2) H 12/30/24 06:55
Lymphocytes % 5.2 % (20.5-51.1) L 12/30/24 06:55
Monocytes % 8.1 % (1.7-9.3) 12/30/24 06:55
Eosinophils % 0.3 % (0-6) 12/30/24 06:55
Basophils % 0.3 % (0-2) 12/30/24 06:55
ESR 49 mm/hour (0-20) H 12/29/24 21:16
Lactic Acid Cancelled 12/30/24 02:00
C-Reactive Protein 216.70 mg/L (0.0-10.00) H 12/29/24 21:16
Ur Squamous Epith Cells 16-20 /LPF (Few) 12/29/24 21:16
Microbiology Results
Micro:
12/29/24 21:16 Chlamydia trachomatis (PCR) - Negative
Urine Neisseria gonorrhoeae (PCR) - Negative
12/29/24 22:16 Blood Culture - Pending
Blood/Venous
12/29/24 22:16 Blood Culture - Pending
Blood/Venous
12/29/24 21:16 Urine Culture - Pending
Urine
Imaging:
12/29/2024 Scrotal ultrasound: no findings to suggest testicular torsion. Possibly slightly increased blood flow bilaterally and cannot exclude bilateral epididymal orchitis. Please see full dictation for additional detail.
12/29/2024 CT abdomen/pelvis with IV contrast: questionable cystitis. No other significant acute abnormalities identified in the abdomen or pelvis. Please see full dictation for additional detail.
Assessment / Plan
Complicated UTI
Suspected of epididymoorchitis
Leukocytosis
HTN
HLD
BPH
Prediabetes
Alopecia
Recommendations:
Continue with empiric Levaquin; transition to oral route as bioavailability is equivalent.
Discontinue further doxycycline.
Follow white count and temperature curve.
Await culture data to guide further antibiotic recommendations.
[2024-12-30] MEDS: FLOMAX 0.8 MG PO (21:40)
[2024-12-30 21:41] LABS: Glucose - Point of Care 112 mg/dl (70-99)
[2024-12-30 23:00] VITALS: BP 137/76
[2024-12-31] MEDS: NSS 1000 IV (01:10)
[2024-12-31 07:10] VITALS: BP 129/82
[2024-12-31 07:30] LABS: Hematocrit 36.2 % (39.0-52.0); Hemoglobin 12.2 g/dL (13.0-18.0); Mean Corp Hgb Conc. 33.7 g/dL (33.0-37.0); Mean Corpuscular Volume 87.4 fL (80.0-94.0); Nucleated Red Blood Cells % 0 % (-); Platelet Count 291 10^3/uL (130-400); Red Cell Dist. Width 14.5 % (11.5-14.5)
[2024-12-31 08:11] LABS: ALT (SGPT) 34 U/L (0-50); AST (SGOT) 24 U/L (17-59); Albumin 3.0 g/dl (3.5-5.0); Alkaline Phosphatase 69 U/L (38-126); Blood Urea Nitrogen 12 mg/dl (9-20); Calcium 8.6 mg/dl (8.4-10.2); Carbon Dioxide 24 mmol/L (22-30); Chloride 108 mmol/L (98-107); Estimated Creatinine Clearance 97 ml/min; Glucose 90 mg/dl (70-99); Potassium 4.3 mmol/L (3.5-5.1); Sodium 138 mmol/L (135-145); Total Protein 5.8 g/dl (6.3-8.2); eGFR > 60.00
[2024-12-31] MEDS: LEVAQUIN 750 MG PO (08:14)
[2024-12-31] MEDS: PROSCAR 5 MG PO (08:14)
[2024-12-31] MEDS: LIPITOR 40 MG PO (08:14)
[2024-12-31 08:19] LABS: Glucose - Point of Care 78 mg/dl (70-99)
[2024-12-31] MEDS: NSS IV (08:20)
--- NOTE | 2024-12-31 08:45 | W.PN.URO.CBU ---
Today's Communication / Plan
-
D/w patient and spouse.
Assessment / Plan
-
Patient Diagnosis:
Acute prostatitis
Acute bilateral epididymo-orchitis
Leukocytosis
JOSELIN
Cr normalized 1.9 => 1.3 => 1.0
Subjectively patient feeling significant improvement in 48 hrs.
- Continue IV Levaquin pending UCx S/S - advise 10-14 day total course of Levaquin for prostatitis/epididymo-orchitis
- CT imaging reviewed => normal pathology, large volume BPH, no prostatic abscess noted
- Continue tamsulosin 0.8 mg qhs
- Continue finasteride 5 mg daily on discharge (NEW prescription)
- Patient will F/U w/ his established urologist in [place] after discharge
Diagnosis
-
Date of Service: December 31, 2024
-
Patient Diagnosis:
Acute prostatitis
Acute bilateral epididymo-orchitis
Leukocytosis
JOSELIN
Subjective
-
Dysuria resolved.
Voiding symptoms improved.
Scrotal tenderness and swelling improved in last 24 hrs.
Objective
-
Vital Signs
Temp Pulse Resp BP Pulse Ox
98.3 F 87 16 129/82 98
12/31/24 07:10 12/31/24 07:10 12/31/24 07:10 12/31/24 07:10 12/31/24 07:10
Intake and Output
12/30/24 12/31/24 01/01/25
06:59 06:59 06:59
Intake Total 550 / 550 1680 / 1680 480 / 480
Output Total 750 / 750
Balance 550 / 550 930 / 930 480 / 480
Intake:
Oral fluids 480 / 480 480 / 480
IV fluids (Total) 450 / 450 1200 / 1200
IV piggybacks 100 / 100
Output:
Urine, Voided 750 / 750
Other:
Number of approximated MODERATE 1
amounts of urine
Laboratory Results
12/31/24 06:56
12/31/24 06:56
Physical Exam
-
General - well developed, well nourished, no acute distress
Abdomen - soft, non-tender, non-distended
Genitalia - mild preputial edema and scrotal edema, no cellulitis/skin changes, no loculated fluid collection or abscess
Skin - warm & dry with no rash
Neuro - AOx3, no motor deficits
Care Review
Data Reviewed
Discussed with: Hospitalist and Family
CT Scan: Report Pers Reviewed and Image Pers Reviewed
Total Time Spent with Patient (in minutes): 35
--- NOTE | 2024-12-31 09:31 | W.PN.HOSP.TC ---
Addendum entered and electronically signed by Andrei Guadalupe MD 12/31/24 10:41:
Please dont use billing under this PN, use discharge summary billing instead
Original Note:
Today's Communication/Plan
-
pendig Ucx
Assessment / Plan
Assessment / Plan
59yo M with PMHx of HTN, HLD, DM, BPH with LUTS came with 4 days of progressive malaise initially with burning with urination later developed R testicular swelling and fevers uup to 102, found epidymo-orchitis, cannot exclde prostatitis
#Sepsis on admission (leukocytosis, fever) 2/2 Epididymo-orchitis
#BPH
#Renal cysts
Chlam/GC PCR neg - no need in doxy
Levofloxacin since EKG without QTc prolongation QTc
Urology consult: Finasteride started
Testicular torsion excluded with US
ID consult: oral levaquin pending Ucx
pain mgmt
#JOSELIN
most likely 2/2 sepsis
resolved on IVF
No obstructive nephropathy on CT
#Simple hepatic cysts
no follow up advised
#Diverticulosis
High fiber diet
#DM type 2 with unspecified complications
Accuchecks Insulin SS DM diet
#Essential HTN
cont home meds
DVt ppx lovenox
FUll code
I have spent at least 58min reviewing chart, test results, communication with consultants, family bedside and providing direct patient care
Anticipated Discharge: Within 24 hours
Subjective/Interval History
-
Date of Service: December 31, 2024
Objective Data
-
Labs:
Laboratory Results
12/31/24
06:56
WBC 14.8 H
Hgb 12.2 L
Hct 36.2 L
Plt Count 291
Sodium 138
Potassium 4.3
Chloride 108 H
Carbon Dioxide 24
BUN 12
Creatinine 1.0
Glucose 90
Calcium 8.6
Total Bilirubin 0.5
AST 24
ALT 34
Alkaline Phosphatase 69
Vital Signs:
Vital Signs
Temp Pulse Resp BP Pulse Ox
98.3 F 87 16 129/82 98
12/31/24 07:10 12/31/24 07:10 12/31/24 07:10 12/31/24 07:10 12/31/24 07:10
I&O
12/30/24 12/31/24 01/01/25
06:59 06:59 06:59
Intake Total 550 / 550 1680 / 1680 480 / 480
Output Total 750 / 750
Balance 550 / 550 930 / 930 480 / 480
Review of Systems
-
History Source: Patient
All other systems: Reviewed and negative
Physical Exam
-
General: No Apparent Distress
Neuro: Awake, Alert, Oriented and AO x 3
Psych: Calm
--- NOTE | 2024-12-31 10:39 | W.PN.ID1 ---
Date of Service
Date of Service: December 31, 2024
Today's Communication
Continue Levaquin.
Assessment / Plan
Complicated UTI
Suspected of epididymoorchitis
Leukocytosis
HTN
HLD
BPH
Prediabetes
Alopecia
Recommendations:
Continue with empiric oral Levaquin to complete a 14-day course.
Patient informed that we will continue to follow pending blood cultures and notify him should they become positive.
Patient advised to follow-up with Urologist following discharge.
Chief Complaint
-: Leukocytosis and UTI
Subjective / Review of Systems
Patient seen and examined. Reports feeling significantly improved today. No dysuria.
Review of Systems: No Fever and No Chills
Vital Signs / Physical Exam
Vital Signs
Vital Signs
Temp Pulse Resp BP Pulse Ox
98.3 F 87 16 129/82 98
12/31/24 07:10 12/31/24 07:10 12/31/24 07:10 12/31/24 07:10 12/31/24 07:10
Physical Exam
Constitutional: No Acute Distress, Comfortable and Non-toxic
Eyes: Sclera Anicteric
Cardiovascular: S1/S2; Negative S3/S4
Pulmonary: Non Labored
Gastrointestinal: Non Distended
Neurological: Awake and Alert
Psychological: Calm
Objective Data
Lab Data
Lab Results
12/31/24 06:56
12/31/24 06:56
ESR 49 mm/hour (0-20) H 12/29/24 21:16
Estimated Creat Clear 97 ml/min 12/31/24 06:56
Lactic Acid Cancelled 12/30/24 02:00
Total Bilirubin 0.5 mg/dl (0.2-1.3) 12/31/24 06:56
AST 24 U/L (17-59) 12/31/24 06:56
ALT 34 U/L (0-50) 12/31/24 06:56
Alkaline Phosphatase 69 U/L (38-126) 12/31/24 06:56
C-Reactive Protein 216.70 mg/L (0.0-10.00) H 12/29/24 21:16
Most recent labs reviewed.
Micro Results:
12/29/24 21:16 Urine Culture - Final
Urine No Significant Growth
12/29/24 22:16 Blood Culture - Preliminary
Blood/Venous No Growth in 24 hours- Final report to follow
12/29/24 22:16 Blood Culture - Preliminary
Blood/Venous No Growth in 24 hours- Final report to follow
12/29/24 21:16 Chlamydia trachomatis (PCR) - Final
Urine Neisseria gonorrhoeae (PCR) - Final
Imaging:
12/29/2024 Scrotal ultrasound: no findings to suggest testicular torsion. Possibly slightly increased blood flow bilaterally and cannot exclude bilateral epididymal orchitis. Please see full dictation for additional detail.
12/29/2024 CT abdomen/pelvis with IV contrast: questionable cystitis. No other significant acute abnormalities identified in the abdomen or pelvis. Please see full dictation for additional detail.
Care Review
Plan reviewed with: Physician (Hospitalist)
--- NOTE | 2024-12-31 10:40 | W.DCSUMMARY ---
Discharge Summary
Discharge Data
Date of Admission: 12/29/24
Date of Discharge: 12/31/24
-
Pending Results: Yes
Additional Pending Results:
Bcx
Hospital Course
59yo M with PMHx of HTN, HLD, DM, BPH with LUTS came with 4 days of progressive malaise initially with burning with urination later developed R testicular swelling and fevers uup to 102, found epidymo-orchitis, cannot exclde prostatitis. Ucx
remained neg. Bcx NTD, as per agreement with ID - can d/c on oral Levaquin to complete 14 days therapy as outpatient. JOSELIN resolved
I have spent at least 58min reviewing chart, test results, communication with consultants, family bedside and providing direct patient care
Patient was managed for
#Sepsis on admission (leukocytosis, fever) 2/2 Epididymo-orchitis
#BPH
#Renal cysts
#JOSELIN
#Simple hepatic cysts
#Diverticulosis
#DM type 2 with unspecified complications
#Essential HTN
Discharge Plan
-
Patient Disposition: Home (Routine Discharge)
Discharge Diagnosis/Procedures: epidydymo-orchitis
Diet: Diabetic, Carb Controlled and Other diet
Additional Diets: High fiber
Activity: As tolerated
Driving Restrictions: As prior to admission
Referrals:
PRIVATE,PHYSICIAN [Family Provider, Internal Medicine]
Prescriptions:
New
levofloxacin 750 mg Tablet
750 mg PO DAILY Qty: 12 0RF
Continued
atorvastatin 40 mg tablet
40 mg PO DAILY
tamsulosin 0.4 mg capsule
0.8 mg PO HS
candesartan 16 mg tablet
16 mg PO DAILY
metformin 750 mg tablet extended release 24 hr
750 mg PO DAILY
Discharge Orders:
Discharge Patient (As Directed); Ordered 12/31/24
Ordered By: Andrei Guadalupe
Discharge Date and Time
Print Language: SPANISH
--- NOTE | 2024-12-31 10:50 | CM ---
Patient seen at bedside with present. patient for discharge home today no needs per patient and . CM will continue to follow for discharge planning needs.
Plan; home with no needs anticipated.
== END 2024-12-31 11:02 | disposition home or self-care (01) | DRG 872 ==
LOC: 2 SOUTH 23:37
PROVIDERS: Clinical Nurse Specialist Family Health; Registered Nurse; ADMITTING PHYSICIAN Hospitalist; ATTENDING PHYSICIAN Internal Medicine; CONSULT PHYSICIAN Internal Medicine Infectious Disease; CONSULT PHYSICIAN Surgery; EMERGENCY PHYSICIAN Emergency Medicine
DX: A41.9 Sepsis, unspecified organism (principal); N17.9 Acute kidney failure, unspecified; N41.0 Acute prostatitis; N45.3 Epididymo-orchitis; I10 Essential (primary) hypertension; E78.00 Pure hypercholesterolemia, unspecified; K76.89 Other specified diseases of liver; R39.11 Hesitancy of micturition; N40.1 Benign prostatic hyperplasia with lower urinary tract symptoms; E11.9 Type 2 diabetes mellitus without complications; N42.89 Other specified disorders of prostate; N39.43 Post-void dribbling; N28.1 Cyst of kidney, acquired; K57.30 Diverticulosis of large intestine without perforation or abscess without bleeding; Z79.84 Long term (current) use of oral hypoglycemic drugs; Z79.899 Other long term (current) drug therapy
CPT/HCPCS: 51798; 74177; 76870; 80053; 81003; 81015; 82962; 83036; 83605; 85025; 85652; 86140; 87040; 87086; 87491; 87591; 93005; 93976; 96365; 99285; Q9967